=== PATIENT | male | born 1970 | race Two or more races ===

== ENCOUNTER 2016-09-22 19:27 | Emergency (ER) | payer OTHER ==
--- NOTE | 2016-09-22 19:46 | PDOC ---
History of Present Illness - General History Source: Patient Exam Limitations: No Limitations - History of Present Illness Initial Comments: 09/22/16 20:21 The patient is a 46 year old male, with a significant past medical history of hypertension, anxiety, and obstructive sleep apnea, who presents to the emergency department with an abscess to his left forearm. The patient reports that he developed an abscess on his left forearm a few days ago and went to urgent care yesterday were they drained it and started him on bactrim antibiotics. He notes that today the affected area is increasingly swollen, red and painful. The patient states that he has had a few abscesses in the past that required drainage. He denies numbness to his arm or weakness. He denies chest pain, shortness of breath, headache and dizziness. He denies fever, chills, nausea, vomit, diarrhea and constipation. Allergies: None Social history:Never smoked PCP: Dr. Toño Mcgovern <Ashlyn Rowley - Last Filed: 09/22/16 20:21> - General History Source: Patient Exam Limitations: No Limitations <Kimmy Cannon - Last Filed: 09/22/16 21:22> - General Chief Complaint: Abscess Boil Stated Complaint: LEFT WRIST ABSCESS WOUND CHECK Time Seen by Provider: 09/22/16 19:31 Past History <Ashlyn Rowley - Last Filed: 09/22/16 20:21> - Past Medical History Anemia: No Asthma: No Cancer: No Cardiac Disorders: No CVA: No COPD: No CHF: No Dementia: No Diabetes: No GI Disorders: No Disorders: No HTN: Yes Hypercholesterolemia: No Liver Disease: No Seizures: No Thyroid Disease: No - Surgical History Abdominal Surgery: No Appendectomy: No Cardiac Surgery: No Cholecystectomy: No Lung Surgery: No Neurologic Surgery: No Orthopedic Surgery: Yes (orif r ankle) - Psycho/Social/Smoking Cessation Hx Anxiety: No Suicidal Ideation: No Smoking Status: No Smoking History: Never smoked Number of Cigarettes Smoked Daily: 0 Hx Alcohol Use: No Drug/Substance Use Hx: No Substance Use Type: None Hx Substance Use Treatment: No <Kimmy Cannon - Last Filed: 09/22/16 21:22> - Past Medical History Allergies/Adverse Reactions: Allergies Allergy/AdvReac Type Severity Reaction Status Date / Time No Known Drug Intolerances Allergy Verified 09/01/15 18:30 Home Medications: Ambulatory Orders Alfuzosin HCl [Alfuzosin HCl ER] 10 mg PO HS 09/01/15 Amlodipine/Valsartan [Amlodipine-Valsartan 5-320 mg] 1 each PO DAILY 09/01/15 Cephalexin [Keflex] 500 mg PO TID #21 capsule 09/22/16 Ibuprofen 400 mg PO TID PRN 09/22/16 Sulfamethoxazole/Trimethoprim [Sulfamethoxazole-Tmp Ds Tablet] 1 each PO BID Review of Systems - Review of Systems Able to Perform ROS?: Yes Comments:: 09/22/16 20:22 GENERAL/CONSTITUTIONAL: No fever or chills. No weakness. HEAD, EYES, EARS, NOSE AND THROAT: No change in vision. No ear pain or discharge. No sore throat. GASTROINTESTINAL: No nausea, vomiting, diarrhea or constipation. GENITOURINARY: No dysuria, frequency, or change in urination. CARDIOVASCULAR: No chest pain or shortness of breath. RESPIRATORY: No cough, wheezing, or hemoptysis. MUSCULOSKELETAL: No joint or muscle swelling or pain. No neck or back pain. SKIN: +Abscess to left forearm NEUROLOGIC: No headache, vertigo, loss of consciousness, or change in strength/ sensation. ENDOCRINE: No increased thirst. No abnormal weight change. HEMATOLOGIC/LYMPHATIC: No anemia, easy bleeding, or history of blood clots. ALLERGIC/IMMUNOLOGIC: No hives or skin allergy. <AmrikAshlyn - Last Filed: 09/22/16 20:21> *Physical Exam - Vital Signs Last Vital Signs Temp Pulse Resp BP Pulse Ox 97.9 F 88 15 136/98 100 09/22/16 19:29 09/22/16 19:29 09/22/16 19:29 09/22/16 19:29 09/22/16 19:29 - Physical Exam Comments: 09/22/16 20:22 GENERAL: Awake, alert, and fully oriented, in no acute distress HEAD: No signs of trauma EYES: PERRLA, EOMI, sclera anicteric, conjunctiva clear ENT: Auricles normal inspection, nares patent, Moist mucosa NECK: Normal ROM, supple, no lymphadenopathy, JVD, or masses LUNGS: Breath sounds equal, clear to auscultation bilaterally. No wheezes, and no crackles HEART: Regular rate and rhythm, normal S1 and S2, no murmurs, rubs or gallops ABDOMEN: Soft, nontender, normoactive bowel sounds. No guarding, no rebound. No masses EXTREMITIES: Normal range of motion, no edema. No clubbing or cyanosis. No cords, erythema, or tenderness NEUROLOGICAL: Normal speech SKIN: +Left forearm has a 2cm by 2cm abscess with some central drainage with surrounding erythema from the elbow to the hand. Area is warm and tender. Full range of motion at the wrist at the wrist and the hand. 2+ radial and ulnar pulses. Warm, Dry. <Ashlyn Rowley - Last Filed: 09/22/16 20:21> Procedures - Incision and Drainage I&D Site: Left: Arm Betadine cleansed: Yes Anesthesia: 1% Lidocaine Volume(ml): 1 Blade Size: 11 Attempts: 1 Plain Packing: No Complications: none Dressing: Yes <Kimmy Cannon - Last Filed: 09/22/16 21:22> Medical Decision Making - Medical Decision Making 09/22/16 19:43 46 yo M with h/o BPH HTN, here wtih c/o left arm abcess, started 2 days ago. was seen at [facility] yesterday, attempted to drain, started on bactrim, since worsening swelling, erythema, redness. no f/c no weakness. no other complaints. on exam awake alert lung heart exam normal. left arm with redness swelling. warmth. 2 + radial ulnar pulse. noted abcess with fluctance, central draining. 2 . 2 cm. plan: will require further I & D, contined abx, and close followup. will add kefled to cover strept. 09/22/16 21:16 abscess I & D. tolerated well. wound culture sent. will add keflex to his bactrim regimen. told to follow up in 48 hours for wound check. <Kimmy Cannon - Last Filed: 09/22/16 21:22> *DC/Admit/Observation/Transfer - Attestations Scribe Attestion: 09/22/16 20:22 Documentation prepared by LUIS Mehta, acting as medical writer for Kimmy Cannon MD. <Ashlyn Rowley - Last Filed: 09/22/16 20:21> - Discharge Dispostion Admit: No <Kimmy Cannon - Last Filed: 09/22/16 21:22> Diagnosis at time of Disposition: Abscess - Discharge Dispostion Disposition: HOME Condition at time of disposition: Improved - Prescriptions Prescriptions: Cephalexin [Keflex] 500 mg PO TID #21 capsule - Referrals Referrals: Toño Mcgovern MD [Primary Care Provider] - - Patient Instructions Printed Discharge Instructions: DI for Incision and Drainage of a Skin Abscess Additional Instructions: take keflex 500 mg three times daily x 7 days in addition to the BACTrim you are already taking. you should return for repeat wound evaluation in 48 hours. wash daily with warm soap and water. return for spreading redness, swelling, fever or any concerns. you can take ibuprofen 600 mg every 8 hours as needed for pain.
[2016-09-22 19:56] VITALS: BP 136/98; PULSE 88; TEMP 97.9; BMI 34.4
[2016-09-22] MEDS ORDERED: CEPHALEXIN MONOHYDRATE 500 MG CAPSULE (UD) PO ONE (21:15)
[2016-09-22] MEDS ORDERED: CEPHALEXIN MONOHYDRATE 500 MG CAPSULE (UD) ONE (21:34)
== END 2016-09-22 21:40 | disposition home or self-care (01) ==
LOC: FER 19:27
PROC: 0H9EXZZ Drainage of Left Lower Arm Skin, External Approach (ICD-10-PCS; principal; 2016-09-22)
DX: L02.414 Cutaneous abscess of left upper limb (principal); I10 Essential (primary) hypertension; F41.9 Anxiety disorder, unspecified; G47.33 Obstructive sleep apnea (adult) (pediatric)
CPT/HCPCS: 10060; 87070; 87186; 87205; 99282-25